=== PATIENT | male | born 1985 | race Caucasian/White ===

== ENCOUNTER 2017-02-17 10:32 | Emergency (ER) | payer OTHER ==
--- NOTE | 2017-02-17 11:01 | UC ---
Respiratory Complaint HPI - HPI Summary HPI Summary: cough, nasal congestion, headache for past 2 weeks. Unable to work. pain over forehead and cheeks. has had sinusitis in past and feels simialr. sx got suddenly worse 2 days ago with vomiting. last vomiting was 2 nights ago. no diarrhea. no wheezing. - History of Current Complaint Chief Complaint: UCGeneralIllness Stated Complaint: COUGH,UPPER RESPIRATORY Time Seen by Provider: 02/17/17 10:59 - Allergies/Home Medications Allergies/Adverse Reactions: Allergies Allergy/AdvReac Type Severity Reaction Status Date / Time No Known Allergies Allergy Verified 02/17/17 10:54 Home Medications: Home Medications Ibuprofen TAB* [Advil TAB*] 400 mg PO Q8H PRN 02/17/17 [History Confirmed ] PMH/Surg Hx/FS Hx/Imm Hx Previously Healthy: Yes Respiratory History Of: Denies: Asthma, Bronchitis Neurological History Of: Denies: CVA Psychological History Of: Denies: Schizophrenia Cancer History Of: Denies: Lung Cancer - Surgical History Surgical History: Yes Surgery Procedure, Year, and Place: 12/2015 Left knee - Family History Known Family History: Positive: Cardiac Disease, Hypertension, Respiratory Disease - copd - Social History Alcohol Use: Occasionally Alcohol Amount: 1-2 Substance Use Type: None Smoking Status (MU): Light Every Day Tobacco Smoker Type: Cigarettes Amount Used/How Often: 1/2 PPD Length of Time of Smoking/Using Tobacco: 15 yrs Have You Smoked in the Last Year: Yes Household Exposure Type: Cigarettes Review of Systems Constitutional: Fatigue Skin: Negative Eyes: Negative ENT: Sore Throat Respiratory: Cough Cardiovascular: Negative Gastrointestinal: Negative Genitourinary: Negative Motor: Negative Neurovascular: Negative Musculoskeletal: Negative Neurological: Headache - forehead Psychological: Negative All Other Systems Reviewed And Are Negative: Yes Physical Exam Triage Information Reviewed: Yes Appearance: Well-Appearing Vital Signs: Initial Vital Signs Temp 98.0 F 02/17/17 10:51 Pulse 66 02/17/17 10:51 Resp 16 02/17/17 10:51 BP 116/74 02/17/17 10:51 Pulse Ox 100 02/17/17 10:51 Vital Signs Reviewed: Yes Eye Exam: Normal ENT: Positive: Pharyngeal erythema - +PND, no exudate, Nasal congestion, TMs normal, Other: - b/l maxillary and frontal tenderness, worse with bending. Negative: TM bulging, TM dull, TM red, Tonsillar swelling, Tonsillar exudate Neck exam: Normal Neck: Positive: Supple, Nontender, No Lymphadenopathy Respiratory: Positive: Lungs clear, Normal breath sounds, No respiratory distress, No accessory muscle use Cardiovascular Exam: Normal Cardiovascular: Positive: RRR, No Murmur, Pulses Normal, Brisk Capillary Refill Abdominal Exam: Normal Abdomen Description: Positive: Nontender, Soft Musculoskeletal Exam: Normal Neurological Exam: Normal Psychological Exam: Normal Skin Exam: Normal UC Diagnostic Evaluation - Laboratory O2 Sat by Pulse Oximetry: 100 Respiratory Course/Dx - Course Course Of Treatment: rapid flu neg - Differential Dx/Diagnosis Differential Diagnosis/HQI/PQRI: Bronchitis, Influenza, Sinusitis Provider Diagnoses: sinusitis Discharge - Discharge Plan Condition: Stable Disposition: HOME Prescriptions: Amoxicillin (*) [Amoxicillin 875 MG (*)] 875 mg PO BID #20 tab Patient Education Materials: Sinusitis (ED) Referrals: No Primary Care Phys,NOPCP [Primary Care Provider] - Additional Instructions: Make sure to take a probiotic every day while you are on the antibiotic. We have given you a list of PCPs to establish with as well.
[2017-02-17 11:03] VITALS: BP 116/74
== END 2017-02-17 12:05 | disposition home or self-care (01) ==
LOC: UCCORT 10:32
DX: J32.9 Chronic sinusitis, unspecified (principal); F17.210 Nicotine dependence, cigarettes, uncomplicated
CPT/HCPCS: 87502; 99212; G0463

== ENCOUNTER 2017-09-11 14:29 | Emergency (ER) | payer BC ==
[2017-09-11 14:47] VITALS: BP 134/73
--- NOTE | 2017-09-11 15:24 | RAD ---
Indication: Right wrist pain 3 views of the wrist demonstrates no fracture. No other bone or joint abnormality is identified. IMPRESSION: NO FRACTURE OF THE WRIST IS NOTED.
--- NOTE | 2017-09-11 15:24 | RAD ---
Indication: Right thumb pain. 4 views of the right hand demonstrates no fracture. No other bone or joint abnormalities identified. IMPRESSION: No fracture of the right hand is noted.
== END 2017-09-11 16:00 | disposition home or self-care (01) ==
LOC: UCCORT 14:29
DX: M25.531 Pain in right wrist (principal); Z77.29 Contact with and (suspected) exposure to other hazardous substances
CPT/HCPCS: 99213; G0463

== ENCOUNTER 2019-01-24 12:06 | Emergency (ER) | payer BC ==
[2019-01-24 12:58] VITALS: BP 104/59
--- NOTE | 2019-01-24 13:20 | UC ---
Knee Pain HPI - HPI Summary HPI Summary: Patient presents with red, warm knee joint that started giving him pain 2 days ago. it is swollen, red and warm to touch, he is having trouble straightening it. has had injury to the knee previously. he is not sure what was torn, all he knows is something in the back of his knee, he thinks it was a muscle not a ligament. he can bear weight but it is very uncomfortable. surgery to the other knee in the past. he is afebrile on exam but has been taking 800 mg of ibuprofen. - History of Current Complaint Chief Complaint: UCLowerExtremity Stated Complaint: RT KNEE PAIN Time Seen by Provider: 01/24/19 13:00 Hx Obtained From: Patient Onset/Duration: Sudden Onset, Lasting Days - 2 Severity Initially: Moderate Severity Currently: Moderate Pain Intensity: 6 Character: Aching, Throbbing Aggravating Factor(s): Movement, Weight Bearing, Prolonged Standing, Stairs Alleviating Factor(s): Nothing Associated Signs And Symptoms: Positive: Swelling, Redness, Weakness Able to Bear Weight: Yes - but very painful - Allergies/Home Medications Allergies/Adverse Reactions: Allergies Allergy/AdvReac Type Severity Reaction Status Date / Time No Known Allergies Allergy Verified 01/24/19 12:51 PMH/Surg Hx/FS Hx/Imm Hx Previously Healthy: Yes - Surgical History Surgical History: Yes Surgery Procedure, Year, and Place: LEFT KNEE--07/2016 - Family History Known Family History: Positive: Cardiac Disease, Hypertension, Respiratory Disease - copd - Social History Alcohol Use: Occasionally Alcohol Amount: 1-2 Substance Use Type: None Smoking Status (MU): Former Smoker Type: Smokeless Tobacco Amount Used/How Often: 2 CANS PER WK Length of Time of Smoking/Using Tobacco: 10-12 YRS Have You Smoked in the Last Year: Yes Household Exposure Type: Cigarettes Review of Systems All Other Systems Reviewed And Are Negative: Yes Constitutional: Positive: Negative Skin: Positive: Other - redness on right knee Eyes: Positive: Negative ENT: Positive: Negative Respiratory: Positive: Negative Cardiovascular: Positive: Negative Gastrointestinal: Positive: Negative Genitourinary: Positive: Negative Motor: Positive: Negative Neurovascular: Positive: Negative Musculoskeletal: Positive: Arthralgia, Decreased ROM, Edema, Myalgia Neurological: Positive: Negative Psychological: Positive: Negative Is Patient Immunocompromised?: No Physical Exam Triage Information Reviewed: Yes Appearance: Well-Appearing, Well-Nourished, Pain Distress Vital Signs: Initial Vital Signs Temp 98.2 F 01/24/19 12:51 Pulse 77 01/24/19 12:51 Resp 16 01/24/19 12:51 BP 104/59 01/24/19 12:51 Pulse Ox 100 01/24/19 12:51 Vital Signs Reviewed: Yes Eye Exam: Normal ENT Exam: Normal ENT: Positive: Pharyngeal erythema, TMs normal Dental Exam: Normal Neck exam: Normal Respiratory Exam: Normal Respiratory: Positive: Chest non-tender, Lungs clear, Normal breath sounds Cardiovascular Exam: Normal Cardiovascular: Positive: RRR, No Murmur, Pulses Normal Abdominal Exam: Normal Abdomen Description: Positive: Nontender, No Organomegaly, Soft Bowel Sounds: Positive: Present Musculoskeletal: Positive: Strength Limited @ - hard to bear weight on right knee, ROM Limited @ - cannot fully extend or flex right knee, Edema @ - generalized right kne swelling., Other: - pain is centered over the right patella, extends to the circumference of the right patella, erythema is splotchy over the knee Neurological Exam: Normal Psychological Exam: Normal Skin: Positive: Other - erythema, no breakdown of skin noted Knee Pain Course/Dx - Course Course Of Treatment: hx obtained, exam performed ,meds reviewed, xray obtained it was negative for fracture and effusion. was treaetd for possible infected bursitis, recommend follow up with Dr Castaneda and report to ER with worsening symtpoms. work note given. - Differential Dx/Diagnosis Differential Diagnosis/HQI/PQRI: Bursitis, Cellulitis, Fracture (Open), Internal Derangement Of Knee, Infection, Elvie-Schlatter Disease, Patellofemoral Syndrome, Sprain, Strain Provider Diagnosis: Prepatellar bursitis, right knee Discharge - Sign-Out/Discharge Documenting (check all that apply): Patient Departure All imaging exams completed and their final reports reviewed: No Studies - Discharge Plan Condition: Stable Disposition: HOME Prescriptions: Sulfamethox/Trimethoprim DS* [Bactrim DS 800/160 TAB*] 1 tab PO BID #14 tab Patient Education Materials: Knee Bursitis (ED) Forms: *Work Release Referrals: No Primary Care Phys,NOPCP [Primary Care Provider] - Aniabl Castaneda MD [Medical Doctor] - Additional Instructions: 1. take the medication as prescribed. 2. ibuprofen 400 mg every 4-6 hours 3. Ifyou notice any increase in redness , swelling, pain, fever chills please report to ER for further treatment and management. 4. I do recommend follow up with Dr castaneda for management of bursitis - Billing Disposition and Condition Condition: STABLE Disposition: Home
== END 2019-01-24 14:09 | disposition home or self-care (01) ==
LOC: UCCORT 12:06
DX: M70.41 Prepatellar bursitis, right knee (principal); Z87.891 Personal history of nicotine dependence
CPT/HCPCS: 99212; G0463